=== PATIENT | male | born 1940 | race Caucasian/White ===

== ENCOUNTER 2017-03-20 11:24 | Inpatient (IN) | payer OTHER, BC ==
[~2017-03-20] VITALS: Ht 172.7 cm; Wt 74.8 kg
[~2017-03-20 11:24] MED LIST: ALPH-E400 UNIT PO; AMBIEN5 MG PO; AMOXICILLIN500 MG PO; AMPICILLIN TRI500 MG PO; ASPIR-MOX 325325 MG PO; ASPIRIN EC325 MG PO; ASPIRIN325 MG PO; AUGMENTIN875 MG PO; B-121500 MCG PO; B-6 PO; CIPRO250 MG PO; CIPRO500 MG PO; COLACE100 MG PO; COMPLETE M9 MG/15 ML PO; CYANOCOBALAM1000 MCG PO; CYMBALTA30 MG PO; CYMBALTA60 MG PO; Cipro PO; Cymbalta PO; FISH OIL 1,2001 EAC1 PO; FISH OIL CONC1 EACH PO; FISH OIL SOFTG1 EAC1 PO; FLOMAX0.4 M1 PO; FLOMAX0.4 MG PO; FORMULA E400 UNIT PO; GLUCOPHAGE500 MG PO; HYDROCHLOROTH12.5 M3 PO; Hydrodiuril,Oretic,E PO; IRON325 MG PO; KEFLEX500 MG PO; LIPITOR40 MG PO; LISINOPRIL40 MG PO; LITE COAT ASPI325 M1 PO; LOVASTATIN40 MG PO; Lopressor PO; MACROBID100 MG PO; METOPROLOL SUCC25 MG PO; METOPROLOL TART25 MG PO; MICROZIDE12.5 M1 PO; NIACIN500 M1 PO; NITROSTAT0.4 MG SL; Nitrostat,NitroQuick SL; PANTOPRAZOLE SO40 MG PO; PERCOCET 5/31 TABLET PO; PLAVIX75 MG PO; PROTONIX40 MG PO; PROVENTIL HFA6.7 GM IH; PROVENTIL IH; Percocet 5/325,Endoc PO; Protonix PO; RAPAFLO8 MG PO; SPIRIVA1 INHALATI IH; TAMIFLU75 MG PO; TRICOR145 MG PO; TRICOR48 MG PO; TYLENOL REGULA325 MG PO; ULTRAM50 MG PO; VIT B12; VIT B6; VITAMIN B-6100 MG PO; VITAMIN B12-FO1 EACH PO; VITAMIN B6100 MG PO; VITAMIN D2000 UNIT PO; VITAMIN D32000 UNIT PO; ZESTRIL,PRINIVI40 MG PO; ZESTRIL40 MG PO; Zestril,Prinivil PO
[2017-03-20 12:37] LABS: BASOPHIL (%) 0.1 % (0-1); BASOPHIL COUNT 0.1 K/uL (0-0.1); EOSINOPHIL (%) 0 % (0-5); LYMPHOCYTE (%) 1.4 % (15-42); LYMPHOCYTE COUNT 0.5 K/uL (1.0-2.8); MONOCYTE COUNT 1.4 K/uL (0-0.8); NEUTROPHIL (%) 92.5 % (45-76); NEUTROPHIL COUNT 32.6 K/uL (1.8-6.4); PLATELET COUNT 459 K/uL (156-360)
[2017-03-20 12:40] LABS: HEMATOCRIT 35.9 % (38.0-50.0); HEMOGLOBIN 12.6 G/DL (12.5-16.6); MCH 36.1 PG (29.0-34.0); MCHC 35.1 G/DL (30.0-36.0); MCV 102.9 FL (86-99); NRBC (%) 0.7 /100 WBC (0-0); RBC DIS.WIDTH-CV 17.8 % (11.8-14.6); RBC DIS.WIDTH-SD 67.2 % (39-53); RED BLOOD COUNT 3.49 M/uL (4.00-5.50); WHITE BLOOD COUNT 35.2 K/uL (4.1-10.2)
[2017-03-20 12:52] LABS: ALBUMIN 4.1 g/dL (3.2-4.8); CHLORIDE 100 mEq/L (99-109); POTASSIUM 3.2 mEq/L (3.7-5.4); SODIUM 133 mEq/L (136-147)
[2017-03-20 12:54] LABS: GLUCOSE 123 mg/dL (70-99); TOTAL PROTEIN 6.7 g/dL (6.4-8.3)
[2017-03-20 12:56] LABS: TOTAL BILIRUBIN 1.7 mg/dL (0.0-1.0)
[2017-03-20 12:58] LABS: ALKALINE PHOSPHATASE 48 IU/L (3-129); CREATININE 1.5 mg/dL (0.6-1.3); GFR ESTIMATE (CALCULATED) 49 mL/min/ (58.99-99999)
[2017-03-20 12:59] LABS: UREA NITROGEN (BUN) 18 mg/dL (9-23)
[2017-03-20 13:00] LABS: AST (GOT) 20 IU/L (2-34)
[2017-03-20 13:01] LABS: ALT (GPT) 19 IU/L (3-49)
[2017-03-20 13:34] LABS: APPEARANCE CLOUDY ((CLEAR)); BILIRUBIN NEGATIVE; BLOOD SMALL; COLOR YELLOW ((YELLOW)); GLUCOSE (STRIP) NEGATIVE; KETONES NEGATIVE; LEUKOCYTES LARGE; NITRITE NEGATIVE; PROTEIN (STRIP) 100; SPECIFIC GRAVITY 1.013 (1.000-1.030); UROBILINOGEN 0.2 MG/DL (0.2-1.0)
[2017-03-20 13:46] LABS: EPITHELIAL CELLS NONE SEEN /HPF; RED BLOOD CELLS RARE /HPF (0-5); WHITE BLOOD CELLS 20-30 /HPF (0-5)
[2017-03-20 13:47] LABS: BACTERIA 2+ /HPF; MUCUS NONE SEEN /LPF
[2017-03-20] MEDS ORDERED: ST. JOSEPH ASPI81 MG PO (14:47)
[2017-03-20 21:45] VITALS: BP 137/78
[2017-03-20 22:30] VITALS: BP 220/107
[2017-03-20 22:42] LABS: BICARBONATE 17.7 mEq/L (22-26); CARBOXY HGB 2.7 % (0-5); COMMENTS - BLOOD GASES A+C+; FI02 21 %; METHEMOGLOBIN 1.3 % (0-1.5); PCO2 36 mm Hg (35-45); PO2 58 mm Hg (80-100); SITE RR
[2017-03-20 22:43] LABS: TOTAL RESP RATE 24 resp/min
[2017-03-20 22:57] LABS: CHLORIDE 105 mEq/L (99-109); SODIUM 136 mEq/L (136-147)
[2017-03-20 22:59] LABS: GLUCOSE 115 mg/dL (70-99); POTASSIUM 4.7 mEq/L (3.7-5.4)
[2017-03-20 23:03] LABS: CREATININE 1.3 mg/dL (0.6-1.3); GFR ESTIMATE (CALCULATED) 57 mL/min/ (58.99-99999); UREA NITROGEN (BUN) 15 mg/dL (9-23)
[2017-03-20 23:12] LABS: TROP-I INTERPRETATION NEGATIVE; TROPONIN-I 0.01 ng/mL (0.0-0.30)
[2017-03-21] VITALS (8 sets, daily range): BP systolic 111–152; BP diastolic 53–74
[2017-03-21 05:51] LABS: BASOPHIL (%) 0.2 % (0-1); BASOPHIL COUNT 0.1 K/uL (0-0.1); EOSINOPHIL (%) 0 % (0-5); IMMATURE GRANULOCYTE (%) 1.4 % (0.0-0.7); LYMPHOCYTE COUNT 0.3 K/uL (1.0-2.8); MONOCYTE (%) 1.5 % (3-12); MONOCYTE COUNT 0.5 K/uL (0-0.8); NEUTROPHIL (%) 95.9 % (45-76); NEUTROPHIL COUNT 32.8 K/uL (1.8-6.4); PLATELET COUNT 418 K/uL (156-360)
[2017-03-21 06:12] LABS: HEMATOCRIT 34.1 % (38.0-50.0); HEMOGLOBIN 11.4 G/DL (12.5-16.6); MCH 35.3 PG (29.0-34.0); MCHC 33.4 G/DL (30.0-36.0); MCV 105.6 FL (86-99); NRBC (%) 0.3 /100 WBC (0-0); RBC DIS.WIDTH-CV 17.9 % (11.8-14.6); RBC DIS.WIDTH-SD 68.9 % (39-53); RED BLOOD COUNT 3.23 M/uL (4.00-5.50)
[2017-03-21 06:17] LABS: WHITE BLOOD COUNT 33.1 K/uL (4.1-10.2)
[2017-03-21 06:20] LABS: CHLORIDE 106 MEQ/L (99-109); CREATININE 1.3 MG/DL (0.6-1.3); GFR ESTIMATE (CALCULATED) 57 mL/min/ (58.99-99999); GLUCOSE 131 mg/dL (70-99); POTASSIUM 3.8 MEQ/L (3.7-5.4); SODIUM 138 MEQ/L (136-147); UREA NITROGEN (BUN) 20 mg/dL (9-23)
[2017-03-22 03:38] VITALS: BP 183/91
[2017-03-22 07:31] VITALS: BP 142/72
[2017-03-22 09:10] LABS: BASOPHIL (%) 0.2 % (0-1); EOSINOPHIL (%) 0 % (0-5); HEMATOCRIT 33.7 % (38.0-50.0); HEMOGLOBIN 11.8 G/DL (12.5-16.6); IMMATURE GRANULOCYTE (%) 0.8 % (0.0-0.7); LYMPHOCYTE (%) 1.4 % (15-42); LYMPHOCYTE COUNT 0.3 K/uL (1.0-2.8); MCH 36.4 PG (29.0-34.0); MONOCYTE (%) 3.3 % (3-12); MONOCYTE COUNT 0.8 K/uL (0-0.8); NEUTROPHIL (%) 94.3 % (45-76); NEUTROPHIL COUNT 21.9 K/uL (1.8-6.4); NRBC (%) 0.5 /100 WBC (0-0); PLATELET COUNT 348 K/uL (156-360); RBC DIS.WIDTH-CV 17.6 % (11.8-14.6); RBC DIS.WIDTH-SD 66.5 % (39-53); RED BLOOD COUNT 3.24 M/uL (4.00-5.50); WHITE BLOOD COUNT 23.3 K/uL (4.1-10.2)
[2017-03-22 10:15] LABS: CHLORIDE 101 MEQ/L (99-109); CREATININE 1.1 MG/DL (0.6-1.3); GFR ESTIMATE (CALCULATED) > 59 mL/min/ (58.99-99999); GLUCOSE 104 mg/dL (70-99); SODIUM 132 MEQ/L (136-147); UREA NITROGEN (BUN) 17 mg/dL (9-23)
[2017-03-22 11:43] VITALS: BP 145/82
[2017-03-22 16:02] VITALS: BP 145/77
[2017-03-22 19:20] VITALS: BP 141/68
[2017-03-23] VITALS (7 sets, daily range): BP systolic 127–160; BP diastolic 60–90
[2017-03-23 05:42] LABS: BASOPHIL (%) 0.2 % (0-1); EOSINOPHIL (%) 0.6 % (0-5); EOSINOPHIL COUNT 0.1 K/uL (0-0.3); HEMATOCRIT 34.5 % (38.0-50.0); HEMOGLOBIN 11.7 G/DL (12.5-16.6); IMMATURE GRANULOCYTE (%) 0.9 % (0.0-0.7); MCH 34.7 PG (29.0-34.0); MCHC 33.9 G/DL (30.0-36.0); MCV 102.4 FL (86-99); MONOCYTE (%) 5.6 % (3-12); MONOCYTE COUNT 0.7 K/uL (0-0.8); NEUTROPHIL (%) 84.7 % (45-76); NEUTROPHIL COUNT 10.4 K/uL (1.8-6.4); NRBC (%) 0.3 /100 WBC (0-0); PLATELET COUNT 362 K/uL (156-360); RBC DIS.WIDTH-CV 17.3 % (11.8-14.6); RBC DIS.WIDTH-SD 64.5 % (39-53); RED BLOOD COUNT 3.37 M/uL (4.00-5.50); WHITE BLOOD COUNT 12.2 K/uL (4.1-10.2)
[2017-03-23 06:05] LABS: CHLORIDE 100 MEQ/L (99-109); CREATININE 0.9 MG/DL (0.6-1.3); GFR ESTIMATE (CALCULATED) > 59 mL/min/ (58.99-99999); GLUCOSE 93 mg/dL (70-99); POTASSIUM 3.3 MEQ/L (3.7-5.4); SODIUM 132 MEQ/L (136-147); UREA NITROGEN (BUN) 14 mg/dL (9-23)
[2017-03-24 04:00] VITALS: BP 151/89
[2017-03-24 05:13] LABS: BASOPHIL (%) 0.3 % (0-1); EOSINOPHIL (%) 1.7 % (0-5); EOSINOPHIL COUNT 0.2 K/uL (0-0.3); HEMATOCRIT 35.3 % (38.0-50.0); HEMOGLOBIN 12.6 G/DL (12.5-16.6); LYMPHOCYTE (%) 8.2 % (15-42); MCHC 35.7 G/DL (30.0-36.0); MCV 100.9 FL (86-99); MONOCYTE (%) 9.7 % (3-12); MONOCYTE COUNT 1.2 K/uL (0-0.8); NEUTROPHIL (%) 78.1 % (45-76); NEUTROPHIL COUNT 9.7 K/uL (1.8-6.4); NRBC (%) 0.2 /100 WBC (0-0); PLATELET COUNT 328 K/uL (156-360); RBC DIS.WIDTH-CV 17.2 % (11.8-14.6); RBC DIS.WIDTH-SD 63.2 % (39-53); WHITE BLOOD COUNT 12.4 K/uL (4.1-10.2)
[2017-03-24 05:45] LABS: CHLORIDE 100 MEQ/L (99-109); CREATININE 0.9 MG/DL (0.6-1.3); GFR ESTIMATE (CALCULATED) > 59 mL/min/ (58.99-99999); GLUCOSE 116 mg/dL (70-99); SODIUM 130 MEQ/L (136-147); UREA NITROGEN (BUN) 13 mg/dL (9-23)
[2017-03-24 05:50] LABS: POTASSIUM 4.1 MEQ/L (3.7-5.4)
[2017-03-24 07:41] VITALS: BP 147/86
[2017-03-24 11:14] VITALS: BP 136/77
[2017-03-24 15:28] VITALS: BP 159/77
[2017-03-24 19:00] VITALS: BP 159/84
[2017-03-25 00:16] VITALS: BP 177/91
[2017-03-25 07:09] LABS: HEMATOCRIT 37.7 % (38.0-50.0); MCH 34.4 PG (29.0-34.0); MCHC 34.5 G/DL (30.0-36.0); MCV 99.7 FL (86-99); NRBC (%) 0.6 /100 WBC (0-0); PLATELET COUNT 376 K/uL (156-360); RBC DIS.WIDTH-SD 61.7 % (39-53); RED BLOOD COUNT 3.78 M/uL (4.00-5.50); WHITE BLOOD COUNT 10.8 K/uL (4.1-10.2)
[2017-03-25 07:37] LABS: CHLORIDE 99 MEQ/L (99-109); CREATININE 0.9 MG/DL (0.6-1.3); GFR ESTIMATE (CALCULATED) > 59 mL/min/ (58.99-99999); GLUCOSE 117 mg/dL (70-99); SODIUM 133 MEQ/L (136-147); UREA NITROGEN (BUN) 12 mg/dL (9-23)
[2017-03-25 07:39] LABS: BASOPHIL (%) 0.6 % (0-1); BASOPHIL COUNT 0.1 K/uL (0-0.1); EOSINOPHIL (%) 2.9 % (0-5); EOSINOPHIL COUNT 0.3 K/uL (0-0.3); IMMATURE GRANULOCYTE (%) 4.8 % (0.0-0.7); LYMPHOCYTE (%) 14.4 % (15-42); LYMPHOCYTE COUNT 1.6 K/uL (1.0-2.8); MONOCYTE (%) 10.4 % (3-12); MONOCYTE COUNT 1.1 K/uL (0-0.8); NEUTROPHIL (%) 66.9 % (45-76); NEUTROPHIL COUNT 7.2 K/uL (1.8-6.4)
[2017-03-25 08:00] VITALS: BP 186/89
[2017-03-25 12:20] VITALS: BP 150/76
[2017-03-25 15:14] VITALS: BP 157/70
[2017-03-25] MEDS ORDERED: CEFTIN500 MG PO (15:22)
== END 2017-03-25 16:51 | disposition home or self-care (01) | DRG 872 ==
LOC: EME 11:24 → 4EAST 15:21 → EDOF 15:21 → ENRESERV 15:23 → 4EAST 21:42 → ENRESERV 03-24 22:03 → 2EAST 03-25 00:14
PROVIDERS: Emergency Medicine; Family Medicine; Hospitalist
PROC: 5A09357 Assistance with Respiratory Ventilation, Less than 24 Consecutive Hours, Continuous Positive Airway Pressure (ICD-10-PCS; principal; 2017-03-20)
DX: A41.51 Sepsis due to Escherichia coli [E. coli] (principal); N10 Acute pyelonephritis; E87.1 Hypo-osmolality and hyponatremia; E11.51 Type 2 diabetes mellitus with diabetic peripheral angiopathy without gangrene; J44.9 Chronic obstructive pulmonary disease, unspecified; I11.0 Hypertensive heart disease with heart failure; I50.9 Heart failure, unspecified; E87.6 Hypokalemia; R09.02 Hypoxemia; R06.03 Acute respiratory distress; I25.10 Atherosclerotic heart disease of native coronary artery without angina pectoris; E78.5 Hyperlipidemia, unspecified; K21.9 Gastro-esophageal reflux disease without esophagitis; K59.00 Constipation, unspecified; F32.9 Major depressive disorder, single episode, unspecified; G89.29 Other chronic pain; M54.9 Dorsalgia, unspecified; F17.210 Nicotine dependence, cigarettes, uncomplicated; I25.2 Old myocardial infarction; Z86.73 Personal history of transient ischemic attack (TIA), and cerebral infarction without residual deficits; Z87.442 Personal history of urinary calculi; Z79.82 Long term (current) use of aspirin; Z79.02 Long term (current) use of antithrombotics/antiplatelets
CPT/HCPCS: 36600; 71045; 74176; 80048; 80048 91; 80053; 81003; 82803; 83605; 83880; 84484; 85025; 87040; 87077; 87086; 87186; 87502; 87801; 93005; 94640; 94640 76; 94660; 94799; 99202; 99281; 99285; J0696; J1650; J1940; J2270; J2405; J2930; J7030; J7040